=== PATIENT | female | born 1985 | race Caucasian/White ===

== ENCOUNTER 2018-05-24 11:52 | Outpatient (CLI) | payer BC ==
[2018-05-24 13:09] LABS: Hemoglobin 12.3 g/dL (12.0-16.0); Mean Corpuscular HGB CONC 31.6 g/dL (32.0-36.0); Mean Corpuscular Hemoglobin 25.2 pg (27.0-31.0); Mean Corpuscular Volume 79.9 fL (78.0-98.0); Mean Platelet Volume 8.5 fL (7.4-10.4); Platelet Count 461 thou/uL (130-400); Red Blood Cell (RBC) Count 4.89 mill/uL (4.20-5.40); White Blood Cell (WBC) Count 6.8 thou/uL (4.8-10.8)
[2018-05-24 13:34] LABS: BHCG - Serum Negative (NEGATIVE); Pregs Control Background? CLEAR/WHITE (CLR/WHITE); Pregs Control Bar Appear? YES (CONTROL BAR)
== END 2018-05-24 11:53 | disposition home or self-care (01) ==
LOC: LABBT 11:52
PROVIDERS: ATTEND Obstetrics & Gynecology
DX: Z01.812 Encounter for preprocedural laboratory examination (principal); N93.8 Other specified abnormal uterine and vaginal bleeding; N85.9 Noninflammatory disorder of uterus, unspecified
CPT/HCPCS: 84703; 85027; 86850; 86900; 86901

== ENCOUNTER 2018-05-25 09:51 | Day surgery (SDC) | payer BC ==
--- NOTE | 2018-05-24 10:16 | HP ---
REASON FOR ADMISSION: Dysfunctional uterine bleeding with endocavitary polyp versus fibroid. SCHEDULED PROCEDURE: Hysteroscopy with a hysteroscopic resection of uterine mass. HISTORY OF PRESENT ILLNESS: Ms. Ramirez is a 33-year-old 1, para 0, AB 1 with a history of geremias rhagia for several years. It has not improved on a contraceptive or other hormonal therapy. An ultr asound in the office reveals a 1.2 cm intracavitary mass consistent with a polyp or fibroid. 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 EMB was performed at [facility] which was read as inactive endometrial glands with decidualized stroma, no atypia noted. PAST MEDICAL HISTORY: Depression. PAST SURGICAL HISTORY: None. ALLERGIES: None. MEDICATIONS: Lexapro, Aygestin and Lysteda. SOCIAL HISTORY: Denies tobacco, alcohol, or IV drug abuse. FAMILY HISTORY/REVIEW OF SYSTEMS: Noncontributory. PHYSICAL EXAMINATION: GENERAL: White female, 5 foot 4, weight 170. VITAL SIGNS: Blood pressure 110/70. HEENT: Within normal limits. LUNGS: Clear to auscultation bilaterally. HEART: Regular rhythm. BREASTS: No mass bilaterally. ABDOMEN: Soft, nontender, no rebound or guarding. PELVIC: Vulva without lesions. Vagina without discharge. Cervix nulliparous. Uterus anteverted, 6 -week size. Adnexa, no masses bilaterally. EXTREMITIES: Without clubbing, cyanosis or edema. IMAGING: Ultrasound in the office reveals a normal appearing left and right adnexa, uterus without i ntramural fibroids, but with intracavitary mass consistent with either a polyp or fibroid approximate ly 1.2 cm in diameter. IMPRESSION: Menorrhagia, dysmenorrhea and dysfunctional uterine bleeding unresponsive to medical man agement with ultrasound findings consistent with endocavitary polyp. PLAN: We will proceed with hysteroscopic resection with Truclear incisor versus ultra at [facility] on 05/25/2018. We will administer appropriate antibiotic and DVT prophylaxis. The patient understands the risks and benefits of the procedure including bleeding, infection, perforation, failu re to completely resect the intracavitary mass and persistence of her menorrhagia.
[2018-05-24 12:26] VITALS: BMI 29.2
[2018-05-25] MEDS ORDERED: Fentanyl 100 MCG/2 ML VIAL ONE (10:35)
[2018-05-25] MEDS ORDERED: CEFAZOLIN 2 GM/50 ML BAG ONE (11:39)
[2018-05-25] MEDS ORDERED: Midazolam HCl 2 mg/2 ml Vial ONE (11:50)
[2018-05-25] MEDS ORDERED: Famotidine/PF 20 mg/2ml Vial ONE (11:56)
[2018-05-25] MEDS ORDERED: Lidocaine 1% w/Epinephrine 1:100K 30 ML VIAL ONE (12:28)
--- NOTE | 2018-05-25 14:12 | OP ---
DATE OF PROCEDURE: 05/25/2018 PREOPERATIVE DIAGNOSES: Menorrhagia, dysmenorrhea, intracavitary mass. POSTOPERATIVE DIAGNOSES: Menorrhagia, dysmenorrhea, intracavitary mass plus intracavitary 1.5-2 cm f ibroid. PROCEDURE PERFORMED: Hysteroscopic myomectomy with TruClear. SURGEON: Benitez Low M.D. ANESTHESIA: General endotracheal. ESTIMATED BLOOD LOSS: Less than 10 mL COMPLICATIONS: None. DRAINS: I&O catheterization at beginning of procedure. OPERATIVE FINDINGS: 1. Pre and post-sound 10 cm. 2. Approximately 4000 mL normal saline used for distention during the hysteroscopy. 3. A 150 mL fluid deficit at the end of the procedure. 4. No evidence of uterine perforation at the end of the procedure. 5. Approximately 1.5-2 cm fibroid completely resected with a TruClear ULTRA plus at the end of the p rocedure. DISPOSITION: To the recovery room in good condition. DESCRIPTION OF OPERATIVE PROCEDURE: After obtaining proper informed consent, the patient was taken t o the operating room where general endotracheal anesthesia was achieved without difficulty. The flor ent was prepped and draped in dorsal lithotomy position in [place] stirrups. Side-hand speculum placed in the vagina, cervix identified, grasped with tooth tenaculum at 6 o' clock. A 20 mL 1% lidocaine and epinephrine was injected for a paracervical block. The cervix was dilated to appropriate level f or the 5 mm hysteroscope. A 5 mm hysteroscope was introduced into the uterine cavity and the operati ve findings were noted. Because of the finding of fibroid instead of polyp, decision was made to pro ceed with the ULTRA plus TruClear necessitating a change to the 8 mm scope. While the equipment was changed over, the cervix was dilated up to an appropriate level for use of the 8 mm scope. An 8 mm s cope was introduced to the uterine cavity and the fibroid clearly visualized. It was pedunculated an d attached at the posterior fundal level. Using the TruClear approximately 30-40 minute period , the fibroid was shaved down completely to the level of the endometrial mucosa. Specimen was remove d and caught in a trap and sent for pathologic analysis. Further documentation at the end of the pro cedure, documenting complete removal of the fibroid along with bilateral tubal ostia. Minimal bleedi ng was noted during resection of the fibroid, minimal fluid absorption was noted and no evidence of u terine perforation was noted. Hysteroscope was removed, tenaculum removed. No bleeding from the cer vix noted. The speculum removed. The patient awakened, extubated, and taken to recovery room in goo d condition. She will be followed at [facility] [place] in 4 weeks.
== END 2018-05-25 14:45 | disposition home or self-care (01) ==
LOC: SDC 09:51
PROVIDERS: ATTEND Obstetrics & Gynecology
PROC: 0UB98ZZ Excision of Uterus, Via Natural or Artificial Opening Endoscopic (ICD-10-PCS; principal; 2018-05-25)
DX: D25.9 Leiomyoma of uterus, unspecified (principal); F32.9 Major depressive disorder, single episode, unspecified; Z79.899 Other long term (current) drug therapy
CPT/HCPCS: 88305; J0131; J2001; J2250; J3010; S0028